=== PATIENT | female | born 1980 | race African-American/Black ===

== ENCOUNTER → 2021-02-17 | Outpatient (CLI) | payer OTHER | END | disposition home or self-care (01) | LOC: PRENATAL 09:00 | PROVIDERS: ATTEND Obstetrics & Gynecology Maternal & Fetal Medicine | DX: O34.11 Maternal care for benign tumor of corpus uteri, first trimester (principal); O36.80X1 Pregnancy with inconclusive fetal viability, fetus 1; O09.511 Supervision of elderly primigravida, first trimester; Z36.89 Encounter for other specified antenatal screening; Z3A.12 12 weeks gestation of pregnancy ==

== ENCOUNTER 2021-04-18 08:11 | Outpatient (CLI) | payer OTHER | END 2021-04-18 09:19 | disposition home or self-care (01) | LOC: PRENATAL 08:11 | PROVIDERS: ATTEND Obstetrics & Gynecology Maternal & Fetal Medicine | DX: O35.0XX1 Maternal care for (suspected) central nervous system malformation in fetus, fetus 1 (principal); O35.3XX1 Maternal care for (suspected) damage to fetus from viral disease in mother, fetus 1; O98.512 Other viral diseases complicating pregnancy, second trimester; O09.512 Supervision of elderly primigravida, second trimester; O34.12 Maternal care for benign tumor of corpus uteri, second trimester; Z36.89 Encounter for other specified antenatal screening; Z3A.20 20 weeks gestation of pregnancy ==

== ENCOUNTER 2021-07-11 13:06 | Outpatient (CLI) | payer OTHER | END 2021-07-11 14:25 | disposition home or self-care (01) | LOC: PRENATAL 13:06 | PROVIDERS: ATTEND Obstetrics & Gynecology Maternal & Fetal Medicine | DX: O26.843 Uterine size-date discrepancy, third trimester (principal); O34.13 Maternal care for benign tumor of corpus uteri, third trimester; O09.523 Supervision of elderly multigravida, third trimester; Z36.89 Encounter for other specified antenatal screening; Z3A.31 31 weeks gestation of pregnancy ==